=== PATIENT | female | born 1990 | race Hispanic/Latino ===

== ENCOUNTER 2017-12-05 17:13 | Emergency (ER) | payer SELFPAY ==
[~2017-12-05 17:13] MED LIST: ACET1TAB12 PO; IBUP-2070 PO; PNV91TAB3 PO
== END 2017-12-05 17:31 | disposition home or self-care (01) ==
LOC: EDH 17:13
DX: J06.9 Acute upper respiratory infection, unspecified (principal)
CPT/HCPCS: 99281

== ENCOUNTER 2024-04-18 22:40 | Observation (INO) | payer OTHER ==
[~2024-04-18] VITALS: Ht 144.8 cm; Wt 46.7 kg
[2024-04-18 22:41] VITALS: BP 131/80; PULSE 82; RESP 20
[2024-04-19 00:03] LABS: APPEARANCE,URINE CLEAR (CLEAR); BILIRUBIN,URINE NEGATIVE (NEGATIVE); COLOR,URINE LIGHT-YELLOW (YELLOW); GLUCOSE, URINE (UA) NEGATIVE (NEGATIVE); KETONES,URINE NEGATIVE (NEGATIVE); LEUKOCYTE ESTERASE ,URINE 75 Leu/uL (NEGATIVE); NITRATE,URINE NEGATIVE (NEGATIVE); PH,URINE 6.5 (5.0-8.0); PROTEIN,URINE NEGATIVE (NEGATIVE); UROBILINOGEN,URINE 0.2 mg/dL (0.2-1.0)
[2024-04-19 00:05] LABS: ADD UA MICROSCOPIC YES
[2024-04-19 00:12] LABS: AMPHET/METH SCREEN,URINE NEGATIVE (NEGATIVE); BACTERIA,URINE RARE /HPF (None Seen); BARBITURATE SCREEN, URINE NEGATIVE (NEGATIVE); BENZODIAZEPINES SCREEN,URINE NEGATIVE (NEGATIVE); CANNABINOID SCREEN,URINE NEGATIVE (NEGATIVE); COCAINE SCREEN,URINE NEGATIVE (NEGATIVE); MUCUS,URINE RARE LPF (None Seen); OPIATE SCREEN,URINE NEGATIVE (NEGATIVE); PHENCYCLIDINE SCREEN,URINE NEGATIVE (NEGATIVE); SQUAMOUS EPITHELIAL CELL,UR FEW /HPF (0-2)
[2024-04-19] MEDS ORDERED: PANTOPRAZOLE 40 MG TAB DR ONE (00:22)
[2024-04-19] MEDS: PANTOPRAZOLE 40 MG TAB DR PO STA (00:30)
== END 2024-04-19 00:46 | disposition home or self-care (01) ==
LOC: EDH 22:40 → LDH 22:41
PROVIDERS: ADMIT Obstetrics & Gynecology; ATTEND Obstetrics & Gynecology
DX: O26.892 Other specified pregnancy related conditions, second trimester (principal); R10.13 Epigastric pain; Z3A.24 24 weeks gestation of pregnancy; Z79.899 Other long term (current) drug therapy
CPT/HCPCS: 80305; 87086; 81001; G0378 ×2; G0379

== ENCOUNTER 2024-07-12 15:33 | Inpatient (IN) | payer SELFPAY ==
[~2024-07-12] VITALS: Ht 144.8 cm; Wt 49.4 kg
[2024-07-12] MEDS: LACTATED RINGERS 1000ML 1,000 ML IV SCH (16:10)
[2024-07-12] MEDS ORDERED: CALDOLOR 800MG+NS 250ML 250 ML IV PRN (16:30)
[2024-07-12 16:34] LABS: HEMATOCRIT 34.4 % (36-48); MEAN CORPUSCULAR HEMOGLOBIN 25.9 pg (27.0-33.0); MEAN CORPUSCULAR HGB CONC 32.6 g/dL (32.0-36.0); MEAN CORPUSCULAR VOLUME 79.6 fL (79-99); RED BLOOD CELL COUNT(AUTO) 4.32 MIL/uL (4.00-5.50); RED CELL DISTRIBUTION WIDTH 13.8 % (11.0-15.5); WHITE BLOOD COUNT (AUTO) 10.6 K/uL (4.8-10.8)
[2024-07-12] MEDS ORDERED: ondanSETRON 4MG INJ ONE (16:37)
[2024-07-12] MEDS ORDERED: morPHINE PF 100MG/10ML AMP IV ONE (16:38)
[2024-07-12] MEDS ORDERED: EPINEPHrine PF 1MG (1:1,000) 1 MG/ML AMP ONE (16:42)
[2024-07-12] MEDS ORDERED: GLYCOPYRROLATE 0.2 MG/ML 5 ML VIAL ONE (16:46)
[2024-07-12] MEDS: metoCLOPRAmide 10 MG/2 ML VIAL IVP PRN (17:35)
[2024-07-12] MEDS: CITRIC ACID/SODIUM CITRATE 30 ML UDCUP PO PRN (17:40)
[2024-07-12] MEDS: ceFAZolin SODIUM 2 GM VIAL IVPB PRN (17:49)
[2024-07-12] MEDS: ceFAZolin SODIUM 2 GM VIAL IVPB ONE (17:49)
[2024-07-12] MEDS ORDERED: MIDAZOLAM HCL 1 MG/ML 2ML VIAL ONE (18:08)
[2024-07-12] MEDS ORDERED: MEPERIDINE-PF 75 MG/ML SYG IM PRN (19:00)
[2024-07-12] MEDS ORDERED: 0.9%NACL 10ML VIAL IVP PRN (19:00)
[2024-07-12] MEDS ORDERED: PROMETHAZINE HCL 25 MG/ML 1ML AMPULE IM PRN (19:00)
[2024-07-12 20:45] VITALS: BP 90/50; PULSE 72; RESP 20; TEMP 98
[2024-07-12] MEDS: DEXTROSE 5 %-0.45 % NACL 1,000 ML IV PRN (23:40)
[2024-07-13 00:01] VITALS: BP 102/64; PULSE 60; RESP 20; TEMP 98
[2024-07-13] MEDS: CALDOLOR 800MG+NS 250ML 250 ML IV SCH (03:27)
[2024-07-13 04:01] VITALS: BP 99/58; PULSE 73; RESP 20; TEMP 98.4
[2024-07-13] MEDS ORDERED: ibuPROFEN 600 MG TABLET PO PRN (07:00)
[2024-07-13] MEDS ORDERED: MEASLES/MUMPS/RUBELLA VACCINE, LIVE 0.5 ML/VIAL SQ SCH (07:00)
[2024-07-13] MEDS ORDERED: acetaMINOPHEN 500 MG TABLET PO PRN (07:00)
[2024-07-13] MEDS ORDERED: LANOLIN 30GM OINTMENT TP PRN (07:00)
[2024-07-13] MEDS ORDERED: HYDROcodone/APAP 5/325 1 TAB TABLET PO PRN (07:00)
[2024-07-13] MEDS ORDERED: BisaCODYL 10 MG SUPP.RECT RC PRN (07:00)
[2024-07-13 07:20] VITALS: BP 104/56; PULSE 72; RESP 18; TEMP 97.9
[2024-07-13 07:25] LABS: HEMATOCRIT 29.7 % (36-48); MEAN CORPUSCULAR HEMOGLOBIN 26.5 pg (27.0-33.0); MEAN CORPUSCULAR VOLUME 80.3 fL (79-99); RED BLOOD CELL COUNT(AUTO) 3.7 MIL/uL (4.00-5.50); RED CELL DISTRIBUTION WIDTH 13.8 % (11.0-15.5)
[2024-07-13] MEDS: acetaMINOPHEN WITH coDEINE 1 TAB TAB PO PRN (07:37)
[2024-07-13] MEDS: doCUSate SODIUM 100 MG CAP PO SCH (08:55)
[2024-07-13] MEDS: SIMETHICONE 80 MG TAB.CHEW PO PRN (08:55)
[2024-07-13] MEDS: DIPH,PERTUSS(ACELL),TET VAC/PF 0.5 ML VIAL IM SCH (11:26)
[2024-07-13] MEDS: FLU VACC TS2024-25(6MOS UP)/PF 45 MCG/0.5 ML ML IM ONE ×2 (11:27→11:54)
[2024-07-13 11:30] VITALS: BP_SYST 134; BP_SYST 90; BP_DIAS 57; BP_DIAS 83; PULSE 82; PULSE 97; RESP 20; TEMP 98; TEMP 98.1
[2024-07-13 15:45] VITALS: BP 93/56; PULSE 77; RESP 20; TEMP 98.3
== END 2024-07-13 19:05 | disposition home or self-care (01) | DRG 788 ==
LOC: EDH 15:33 → OBSVTOIN 15:34 → LDH 15:34 → WSH 20:50
PROVIDERS: ADMIT Obstetrics & Gynecology; ATTEND Obstetrics & Gynecology
PROC: 10D00Z1 Extraction of Products of Conception, Low, Open Approach (ICD-10-PCS; principal; 2024-07-12 17:42)
PROC: 3E02340 Introduction of Influenza Vaccine into Muscle, Percutaneous Approach (ICD-10-PCS; 2024-07-13)
PROC: 3E0234Z Introduction of Serum, Toxoid and Vaccine into Muscle, Percutaneous Approach (ICD-10-PCS; 2024-07-13)
DX: O99.824 Streptococcus B carrier state complicating childbirth (principal); O34.211 Maternal care for low transverse scar from previous cesarean delivery; N73.6 Female pelvic peritoneal adhesions (postinfective); O99.892 Other specified diseases and conditions complicating childbirth; O69.81X0 Labor and delivery complicated by cord around neck, without compression, not applicable or unspecified; Z3A.37 37 weeks gestation of pregnancy; Z37.0 Single live birth; Z23 Encounter for immunization
CPT/HCPCS: 36415; 59510; 85027; 86592; 86850; 86900; 86901; 87340; 90715; A4344; G0378; J0171; J1741; J2250; J2274; J2405; J2590; J2765; J3490; J7120; Q2035; A4248; J0690; L0625; Q2038